=== PATIENT | female | born 1970 | race Caucasian/White ===

== ENCOUNTER 2017-09-16 09:17 | Emergency (ER) | payer OTHER, MEDICAID, SELFPAY ==
[2017-09-16 09:24] VITALS: BP 160/102; PULSE 83; RESP 15; TEMP 36.4; O2SAT 98; BMI 38.0
--- NOTE | 2017-09-16 09:47 | ED.UPPEXIN ---
HPI - Extremity Injury (Upper) General Chief Complaint: Extremity Injury, Upper Stated Complaint: pain in left shoulder since this morning Time Seen by Provider: 09/16/17 09:21 Source: patient and family Mode of arrival: ambulatory Limitations: no limitations History of Present Illness HPI narrative: Patient presents to the emergency department this morning with a chief complaint of severe left shoulder pain since flipping out of bed this morning and landing directly on it. She denies any other injuries such as head, neck or back pain. She denies numbness, tingling or weakness. Her pain is worse with motion and improves with rest MD complaint: injury to: left and shoulder Onset (ago): minute(s) Other injuries: none Handedness: right Place: home Context: fall and direct blow Related Data Home Medications Medication Instructions Recorded Confirmed atenolol 100 mg PO QDAY #0 07/23/17 duloxetine [Cymbalta] 60 mg PO QDAY #0 07/23/17 pantoprazole [Protonix] 40 mg #0 07/23/17 trazodone 150 mg PO HS #0 07/23/17 Previous Rx's Medication Instructions Recorded methocarbamol 750 mg PO TIDP PRN #30 tab 07/23/17 tramadol 50 mg PO Q6HP PRN #18 tab 07/23/17 Allergies Allergy/AdvReac Type Severity Reaction Status Date / Time adhesive [ADHESIVE] Allergy Unknown please use Verified 09/16/17 09:24 paper tape!! Penicillins [PENICILLINS] Allergy Unknown Verified 09/16/17 09:24 Review of Systems Review of Systems All systems reviewed & are unremarkable except as noted in HPI and below Constitutional Denies chills, Denies fever(s), Denies lethargy and Denies weakness Cardiovascular Denies chest pain, Denies irregular heart rhythm, Denies lightheadedness, Denies palpitations and Denies orthopnea Gastrointestinal Gastrointestinal: Denies abdominal pain, Denies change in bowel habits, Denies diarrhea, Denies nausea and Denies vomiting Genitourinary Denies hematuria, Denies flank pain, Denies urinary incontinence and Denies urinary urgency Musculoskeletal Reports as per HPI and Reports limited range of motion (Secondary to pain) Integumentary/Breasts Denies pruritus, Denies erythema, Denies rash and Denies wounds Neurologic Denies weakness Endocrine Denies palpitations [facility] Medical History HTN (hypertension) (Acute) Exam Initial Vital Signs Initial Vital Signs: Vital Signs Temperature 97.5 F L 09/16/17 09:24 Pulse Rate 83 09/16/17 09:24 Respiratory Rate 15 09/16/17 09:24 Blood Pressure 160/102 H 09/16/17 09:24 Pulse Oximetry 98 09/16/17 09:24 Const General: cooperative and well developed Nutritional Appearance: well nourished Orientation: alert, awake, oriented x3 and not confused HENAZ Head: normocephalic and atraumatic Ears: external ears normal and TM's normal bilaterally Nose: external nose normal and No nasal discharge Face and sinus: sinuses nontender, face symmetric, no sinus tenderness and No dry mucous membranes Mouth: oral mucosae normal and moist mucous membranes Teeth and gingiva: dentition normal Throat: tonsils normal and uvula midline Neck Neck: normal visual inspection, trachea midline, No lymphadenopathy, No midline deformity and No JVD Lymphatic: No lymphedema Resp Effort & Inspection: normal respiratory effort, able to speak in complete sentences, no respiratory distress and no use of accessory muscles Auscultation: clear to auscultation bilaterally, no rales, no rhonchi and no wheezes GI Inspection: non-distended Palpation: soft, no hepatosplenomegaly, No guarding, No pulsatile mass and No tender Auscultation: normal bowel sounds Back/Spine/Pelvis Back: No CVA tenderness Cervical Spine: cervical ROM normal and No pain with cervical ROM Thoracic/Lumbar Spine: thoracic and lumbar spine normal to inspection Extrem General: No full ROM (Secondary to pain), no clubbing, cyanosis or edema, no pedal edema and no calf tenderness Left upper extremity: shoulder/upper arm Details: tenderness, axillary nerve sensory function normal and abnormal ROM; no abrasions, no lacerations, no ecchymosis, no crepitus, no foreign bodies, no penetrating wound, no deformity and no unsual warmth; ROM limited (Secondary to pain in shoulder) Procedures Orthopedic Splinting/Casting Injury #1: Side: left Upper Extremity Injury Location: shoulder Upper Extremity Immobilizer: sling/shoulder immobilizer Additional Comments: Patient tolerated well, neurovascularly intact after administration of splint Course Orders Ordered: ED Orders 09/16/17 09:56 XR shoulder LT min 2V Stat Vital Signs - 8 hr 09/16/17 09:24 Temperature 97.5 F L Pulse Rate 83 Respiratory Rate 15 Blood Pressure 160/102 H Pulse Oximetry 98 MDM - Extremity Injury (Upper) Medical Records Attestation: I reviewed the patient's medical records. Imaging Data Shoulder Xray: Attestation: I personally reviewed and interpreted this imaging study as follows: My impression: NAP Radiologist's impression: PROCEDURE: XR SHOULDER LT MIN 2V INDICATIONS: fall with L shoulder pain TECHNIQUE: 3 views of the shoulder were acquired. COMPARISON: None. FINDINGS: Bones: No fractures or dislocations. No suspicious bony lesions. Visualized ribs appear intact. There is a mild high riding appearance of the humeral head. Mild acromioclavicular degenerative narrowing. Soft tissues: No suspicious soft tissue calcifications. IMPRESSION: 1. No visualized acute fracture or dislocation. However, if clinical concern and/or pain persist, short interval imaging followup in 7-10 days is recommended, as occult injury cannot be definitively excluded. 2. Mild high riding appearance of the humeral head. High riding appearance of the humeral head, which can be indicative of rotator cuff pathology. Dictated by: Alejandra Paredes M.D. on 09/16/2017 at 10:20 Approved by: Alejandra Paredes M.D. on 09/16/2017 at 10:21 Discharge Plan Departure Clinical Impression: Shoulder sprain Instructions: DI for Shoulder Pain Prescriptions: No Action atenolol 100 MG tablet 100 mg PO QDAY Qty: 0 RF: 0 trazodone 150 MG tablet 150 mg PO HS Qty: 0 RF: 0 duloxetine [Cymbalta] 60 MG capsule,delayed release(DR/EC) 60 mg PO QDAY Qty: 0 RF: 0 pantoprazole [Protonix] [address] for susp in packet 40 mg Qty: 0 RF: 0 tramadol 50 MG tablet 50 mg PO Q6HP PRNQty: 18 RF: 0 methocarbamol 750 MG tablet 750 mg PO TIDP PRNQty: 30 RF: 0
--- NOTE | 2017-09-16 09:56 | DI.RAD.S_ITS ---
PROCEDURE: XR SHOULDER LT MIN 2V INDICATIONS: fall with L shoulder pain TECHNIQUE: 3 views of the shoulder were acquired. COMPARISON: None. FINDINGS: Bones: No fractures or dislocations. No suspicious bony lesions. Visualized ribs appear intact. There is a mild high riding appearance of the humeral head. Mild acromioclavicular degenerative narrowing. Soft tissues: No suspicious soft tissue calcifications. IMPRESSION: 1. No visualized acute fracture or dislocation. However, if clinical concern and/or pain persist, short interval imaging followup in 7-10 days is recommended, as occult injury cannot be definitively excluded. 2. Mild high riding appearance of the humeral head. High riding appearance of the humeral head, which can be indicative of rotator cuff pathology. Dictated by: Alejandra Paredes M.D. on 09/16/2017 at 10:20 Approved by: Alejandra Paredes M.D. on 09/16/2017 at 10:21
[2017-09-16 10:45] VITALS: BP 147/91; PULSE 85; RESP 16; O2SAT 100
[2017-09-16 10:47] VITALS: BP 141/91; PULSE 85; RESP 14; TEMP 36.3; O2SAT 100
== END 2017-09-16 10:58 | disposition home or self-care (01) ==
PROVIDERS: Emergency Provider Emergency Medicine
DX: S43.402A Unspecified sprain of left shoulder joint, initial encounter (principal); W06.XXXA Fall from bed, initial encounter
CPT/HCPCS: 73030; 99283